=== PATIENT | female | born 2000 | race Caucasian/White ===

== ENCOUNTER 2020-12-05 12:50 | Emergency (ER) | payer OTHER ==
[~2020-12-05] VITALS: Ht 152.4 cm; Wt 68.2 kg
[2020-12-05 13:18] VITALS: TEMP 98.6
[2020-12-05 13:50] VITALS: BP 105/64; PULSE 83
== END 2020-12-05 13:50 | disposition home or self-care (01) ==
LOC: COL.ER 12:50
DX: M25.562 Pain in left knee (principal); G89.29 Other chronic pain
CPT/HCPCS: L1846